=== PATIENT | male | born 1970 | race Caucasian/White ===

== ENCOUNTER 2017-08-23 22:04 | Inpatient (IN) | payer OTHER ==
[~2017-08-23] VITALS: Ht 180.3 cm; Wt 111.6 kg
[~2017-08-23 22:04] MED LIST: CARVEDILOL12.5 MG PO; FLAGYL500 MG PO; HYDROCHLOROTHIA25 M2 PO; LEVOTHYROXINE 0.1 MG PO; LOPRESSOR50 PO; PROTONIX40 M1 PO; TRINATE TABLET1 TAB PO; VITAMIN B-1100 M1 PO
[2017-08-23 22:07] VITALS: BP 101/58
[2017-08-23] MEDS ORDERED: TRAMADOL 50 MG50 MG PO (22:11)
[2017-08-23] MEDS ORDERED: PRINIVIL20 MG PO (22:11)
[2017-08-23 22:29] LABS: ABSOLUTE BASOPHILS 0.2 thou/uL (0.0-0.2); ABSOLUTE EOSINOPHILS 0.3 thou/uL (0.0-0.7); ABSOLUTE LYMPHOCYTES 2.6 thou/uL (0.8-5.3); ABSOLUTE MONOCYTES 1.5 thou/uL (0.0-1.2); ABSOLUTE NEUTROPHILS 6.8 thou/uL (1.6-8.1); BASOPHILS 1.5 %; EOSINOPHILS 2.5 %; HEMATOCRIT 47.4 % (42.0-52.0); HEMOGLOBIN 15.7 gm/dL (14.0-18.0); LYMPHOCYTES 23.2 %; MCH 30.3 pg (26.0-34.0); MCV 91.9 fL (80.0-100.0); MONOCYTES 13.1 %; MPV 8.1 fl. (7.2-11.1); NUCLEATED RBCS 0 /100WBC; PLATELET COUNT* 381 thou/uL (150-400); POLYS 59.7 %; RBC 5.16 mil/uL (4.50-6.00); RDW-CV 14.2 % (10.5-14.5); WBC 11.4 thou/uL (4.0-11.0)
[2017-08-23 22:36] LABS: APTT 23.9 Seconds (25.0-31.3); PROTIME 9.7 Seconds (9.20-11.50)
[2017-08-23 23:34] LABS: CREATININE 3.4 mg/dL (0.6-1.3)
[2017-08-23 23:35] LABS: ALBUMIN 3.4 g/dL (3.4-5.0); CALCIUM 8.8 mg/dL (8.5-10.1); TOTAL PROTEIN 7.2 g/dL (6.4-8.2)
[2017-08-23 23:36] LABS: TROPONIN-I LEVEL 0.17 ng/mL (<0.06)
[2017-08-23 23:51] LABS: URINE BILIRUBIN NEGATIVE (Negative); URINE BLOOD 1+ (Negative); URINE CLARITY CLEAR; URINE COLOR YELLOW; URINE GLUCOSE-RANDOM NEGATIVE (Negative); URINE KETONES TRACE (Negative); URINE LEUKOCYTES-REFLEX TRACE (Negative); URINE NITRITE-REFLEX NEGATIVE (Negative); URINE PROTEIN 1+ (Negative); URINE SPECIFIC GRAVITY 1.015 (1.005-1.030); URINE UROBILINOGEN 0.2 E.U./dl (0.2-1.0)
[2017-08-23 23:54] LABS: TOTAL BILIRUBIN 0.2 mg/dL (<0.1-1.0)
[2017-08-23 23:59] LABS: AMP/METHAMP Negative (Negative); BARBITURATES Negative (Negative); BENZODIAZEPINES Negative (Negative); COCAINE Negative (Negative); METHADONE Negative (Negative); OPIATES Negative (Negative); PCP Negative (Negative); THC Negative (Negative)
[2017-08-24 00:24] LABS: BACTERIA-REFLEX >30 Many /HPF (None Seen); COARSE GRANULAR CASTS 0-3 Few /LPF (None Seen); CRYSTALS None Seen /LPF (None Seen); FINE GRANULAR CASTS 4-10 Moderate /LPF (None Seen); HYALINE CASTS 0-3 Few /LPF (None Seen); MUCUS 4-6 Moderate strn/LPF (None Seen); SQUAMOUS 0-3 Few /LPF (0-3); TRANSITIONAL EPITHEL CELL 0-3 Few /LPF (None Seen); WBC CLUMPS Few (None Seen)
[2017-08-24 00:50] VITALS: BP 133/88
[2017-08-24 01:10] VITALS: BP 133/88
[2017-08-24 04:00] VITALS: BP 127/82
--- NOTE | 2017-08-24 04:24 | NUR ---
ASSUMED CARE OF PT AT 0105 FROM THE ER. PT IS ALERT AND ORIENTED. VSS. PERRLA. NO COMPLAINTS OF PAIN. PT IS NPO FOR CARDIOLOGY. PT IS SLEEPING QUIETLY IN BED. RESPIRATIONS ARE EVEN AND NONLABORED. WILL CONTINUE TO MONITOR PT.
[2017-08-24 08:00] VITALS: BP 152/101
[2017-08-24 08:17] LABS: CALCIUM 9.1 mg/dL (8.5-10.1); CREATININE 2.8 mg/dL (0.6-1.3); MAGNESIUM 2.3 mg/dL (1.8-2.4)
[2017-08-24 08:18] LABS: POTASSIUM 4.2 mmol/L (3.5-5.1)
--- NOTE | 2017-08-24 09:53 | NUR ---
Pt is A&O. Resides at home with and kids. 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 No DME. No hx of HH or SNF. Supportive family. Following for disposition.
--- NOTE | 2017-08-24 10:24 | EKG ---
[place] [address] ELECTROCARDIOGRAM REPORT Name: MONICO CRAMER Room: [address] IN [facility].#: [id number] Admission: 08/23/17 Attend Phys: Contreras Scanlon Discharge: Date of : 70 Report #: [id number] THIS REPORT FOR: //name// [facility] ED Test Date: 2017-08-23 Test Time: 22:10:38 Pat Name: MONICO CRAMER Department: Room: Gender: Ramp Lead: VINAYAK Martinez : 1970 Requested By: Loraine Damon Order Number: [id number] MD: Mart Storm Measurements Intervals [place] Rate: 110 P: 41 VA: 159 QRS: 31 QRSD: 102 T: 18 QT: 329 QTc: 446 Interpretive Statements Sinus tachycardia ST elev, probable normal early repol pattern Compared to ECG 10/08/2016 07:25:45 ST (T wave) deviation now present Myocardial infarct finding no longer present Electronically Signed On 08-24-2017 10:24:24 CDT by Mart Storm [email or web address] <ELECTRONICALLY SIGNED> By: Mart Storm MD, FACC 08/24/17 1024 2210 2210 Mart Storm MD, [facility] /EPI
--- NOTE | 2017-08-24 13:04 | NUR ---
ASSUMED CARE OF PT AT 0730. PT RESTING IN BED. PT A&0X4, DENIES ANY PAIN OR SHORTNESS OF BREATH AT THIS TIME. PT BLOOD PRESSURE ELEVATED AT 152/101- DR YORK AWARE. NO NEW ORDERS RECEIVED AT THIS TIME. PT TRACING SR/ST ON THE PLATER SUPERVISOR. ON RA SAT UPPER 90'S. IVF. PT UP SBA TO BATHROOM. PT NPO AT THIS TIME FOR CARDIOLOGY CONSULT. PT GOAL FOR TODAY IS MONITOR BLOOD PRESSURE CLOSELY, MONITOR CIWA'S AND OBTAIN ORTHOSTATS. AM ASSESSMENT CHARTED. MEDICATIONS PER APR. PT REPOSITIONS SELF. HOURLY ROUNDING OBSERVED. BED IN LOW POSITION. CALL LIGHT WITHIN REACH. WILL CONTINUE PLAN OF CARE.
--- NOTE | 2017-08-24 13:27 | CON ---
[address] [address] CONSULTATION Name: MONICO CRAMER Room: [address] IN M.R.#: [id number] Admission: 08/23/17 Attend Phys: Contreras Scanlon Discharge: Date of : 70 Report #: [id number] THIS REPORT FOR: //name// CC: Guilherme Dong INPATIENT CONSULTATION PRIMARY CARE PROVIDER: Guilherme Cope DO. CHIEF COMPLAINT: Syncope. HISTORY OF PRESENT ILLNESS: The patient is a 47-year-old male with a history of high blood pressure, and cerebrovascular disease, who had an episode of fainting while standing up yesterday. He could tell it was coming on. He somewhat felt nauseous and then he briefly went unconscious. It never occurs while walking. It always occurs from sitting from standing. He has a long-standing history of high blood pressure and difficult to manage blood pressures. He had a recent titration of his lisinopril dose. His blood pressure was running in the 170s-180s systolic range. He denies chest pain or pressure, although in the past, he has had chest pain. He denies fevers, chills or cough. He does drink a pint of liquor, usually whiskey daily. He denies fevers or chills. He has had some diminished p.o. intake as well as he has had some dysphagia apparently only with liquids. He has been receiving IV fluids overnight and currently, he is asymptomatic and is in a sinus rhythm. He denies exertional shortness of breath, syncope or presyncope with activity. PAST MEDICAL HISTORY:He has severe internal carotid vascular disease per prior SD, and apparently was referred to [facility] for evaluation, but didn't seek treatment He has a history of cardiac murmur and aortic sclerosis based on 2017 echocardiogram. He had a negative stress test that year. He has grossly normal LV systolic function. He has hypertension. He has the aforementioned daily ethanol intake. He has high cholesterol. He is not diabetic. He denies kidney failure. He denies any history of arrhythmia or PVD. He denies any history of cardiovascular disease, strokes or TIAs. HOME MEDICATIONS: Lisinopril 40 mg daily [place] [address] CONSULTATION Name: MONICO CRAMER Room: [address]#: [id number] Admission: 08/23/17 Attend Phys: Contreras Scanlon Discharge: Date of : 70 Report #: [id number] PAST SURGICAL HISTORY: No recent surgeries. SOCIAL HISTORY: He, as noted above, drinks a pint of whiskey daily. He is . He does not smoke. REVIEW OF SYSTEMS: CENTRAL NERVOUS SYSTEM: No seizures. Positive weakness. GENERAL: No weight loss or fevers. RESPIRATORY: No cough, sputum production, wheezing or asthma. CARDIOVASCULAR: No palpitations. In the past, he has had chest discomfort. He has mild shortness of breath. He denies orthopnea or PND. ENDOCRINE: He denies diabetes. GASTROINTESTINAL: Positive vomiting. GENITOURINARY: No dysuria or hematuria. HEMATOLOGIC: No anemia or bleeding disorders. ALLERGIES: Positive seasonal allergies. No aspirin or contrast allergies. PSYCHIATRIC: No depression or anxiety. MUSCULOSKELETAL: Positive arthritis. SKIN: No rashes. EYES: He denies glasses. EARS, NOSE, THROAT AND MOUTH: No decreased hearing, bleeding from nose or dentures. PHYSICAL EXAMINATION: VITAL SIGNS: Blood pressure today is 152/101, pulse is 99 and respiratory rate is 18. GENERAL: This is a pleasant middle-aged male who is alert, oriented, no apparent distress. HEENT: There is no evidence of trauma. The patient has no facial asymmetry. NECK: Carotid upstrokes are normal. I cannot hear bruits. CARDIOVASCULAR EXAMINATION: Regular. There is a grade 3/6 systolic murmur. LUNGS: Clear to auscultation. ABDOMEN: Nontender. EXTREMITIES: There is no peripheral edema. SKIN: Warm and dry. DIAGNOSTIC DATA: Telemetry demonstrates a sinus rhythm. ECG demonstrates a sinus tachycardia. Normal ST segments. LABORATORY DATA: Hemoglobin 15.7, white blood cell count 11.4. Sodium is 143, potassium is 4.2, chloride is 107, CO2 is 24, BUN is 42 and creatinine is 2.8. Troponin I is 0.06 x 2 sets. TSH is 2.616. IMPRESSION AND PLAN: 1. Extracellular volume depletion. [place] [address] CONSULTATION Name: MONICO CRAMER Room: [address]#: [id number] Admission: 08/23/17 Attend Phys: Contreras Scanlon Discharge: Date of : 70 Report #: [id number] 2. Syncope. This seems orthostatic, but there is possibly a component of vasovagal syncope and this is not his first episode. He has internal carotid vascular disease and may be having global cerebrovascular ischemia transiently. 3. Hypertension. Given his kidney disease, we will hold his WILL inhibitor. He may benefit from a beta-deedee type drug with less peripheral action.However I would keep his blood pressure mildly elevated due to his cerebrovascular disease. 4. Ethanol intake. This is likely the etiology of his dehydration and possibly his tachycardia as well if he is having some withdrawal. Cessation is recommended. 5. Cerebrovascular disease- neurology is being consulted. <ELECTRONICALLY SIGNED> By: Mart Storm MD, FACC 08/24/17 1327 0932 [id number] Storm MD, FACC /nt
[2017-08-24 16:12] VITALS: BP 172/113
--- NOTE | 2017-08-24 18:42 | NUR ---
NO ACUTE CHANGES THROUGHOUT SHIFT. REFER TO CHARTING. ORTHOSTATS COMPLETED- PT SCREENED NEGATIVE. PT BLOOD PRESSURE CONTINUES TO BE ELEVATED- GOAL IS TO KEEP IT ELEVATED SOME DUE TO CVA HISTORY, LISINOPRIL HELD DUE TO RENAL FUNCTION. PT GIVEN ONE DOSE OF ATIVAN PO WITH RELIEF. CIWA SCORE CHARTED. PT HAD US CAROTIDS AND A RENAL ULTRASOUND TODAY. REFER TO RESULTS. NEURO AND VASCULAR CONSULTED ON PT FOR MOYAMOYA. PT DENIES ANY PAIN OR SHORTNESS OF BREATH THROUGHOUT SHIFT. CONTINUES TO TRACE SR/ST ON THE SENIOR LABORATORY TECHNICIAN. ON RA SAT UPPER 90'S. IVF. PT UP SBA TO BATHROOM. FAMILY AT BEDSIDE THIS AFTERNOON- UPDATED ON CURRENT CARE PLAN. MEDICATIONS PER APR. PT REPOSITIONS SELF. HOURLY ROUNDING OBSERVED. BED IN LOW POSITION. CALL LIGHT WITHIN REACH. WILL CONTINUE PLAN OF CARE.
[2017-08-24 19:35] VITALS: BP 190/116
[2017-08-25] VITALS (7 sets, daily range): BP systolic 150–187; BP diastolic 88–116
--- NOTE | 2017-08-25 00:25 | NUR ---
ASSUMED CARE OF PT AT 1900. PT IS ALERT AND ORIENTED. VSS. PERRLA. CIWA IS 0 AT THIS TIME. STEADY GAIT. PT IS UP WITH 1 ASSIST. PT IS IN SINUS RYTHM ON THE TELEMETRY. PT IS RESTING COMFORTABLY IN BED. RESPIRATIONS ARE EVEN AND NONLABORED. WILL CONTINUE TO MONITOR PT.
[2017-08-25 04:49] LABS: HEMATOCRIT 43.2 % (42.0-52.0); HEMOGLOBIN 14.3 gm/dL (14.0-18.0); MCH 30.4 pg (26.0-34.0); MCHC 33.2 g/dL (28.0-37.0); MCV 91.6 fL (80.0-100.0); MPV 8.2 fl. (7.2-11.1); RBC 4.72 mil/uL (4.50-6.00); RDW-CV 14.3 % (10.5-14.5); WBC 9.3 thou/uL (4.0-11.0)
[2017-08-25 04:58] LABS: CALCIUM 8.3 mg/dL (8.5-10.1); MAGNESIUM 1.5 mg/dL (1.8-2.4); POTASSIUM 3.5 mmol/L (3.5-5.1)
[2017-08-25 05:06] LABS: CREATININE 1.1 mg/dL (0.6-1.3)
--- NOTE | 2017-08-25 17:39 | NUR ---
PATINET RESTING IN BED. UP STANDBY ASSIST IN ROOM. PATINET EXPECTED TO DISCHARGE TOMORROW. FOLLOW UP WITH NEUROLOGY AT [facility]. BIPAP AT . HOURLY ROUNDING COMPETED FOR PATIENT SAFETY AND PATIENT PARTICIPATING IN PLAN OF CARE.
--- NOTE | 2017-08-25 20:05 | CON ---
[facility] [address] [place] [address] CONSULTATION Name: MONICO CRAMER Room: [address] IN M.R.#: [id number] Admission: 08/23/17 Attend Phys: Contreras Scanlon Discharge: Date of : 70 Report #: [id number] THIS REPORT FOR: //name// CC: Guilherme Dong HISTORY OF PRESENT ILLNESS: This is a 47-year-old male patient who was seen by me for a complicated history. This patient is admitted with syncope. The family indicates that his blood pressure goes too low. They checked the blood pressure and sometime the blood pressure is only 70 systolic. On other occasion, his blood pressure goes high. He did have an episode of syncope while standing. The family tells me that the patient was here in September and I saw him at that time and had recommended that he goes to [facility]. According to them, it was in 09/2016. They never went to [facility]. They indicated that [facility] wanted a referral and they called my office and my office sent the referral according to them, but then they called again and [facility] said they never got it and then they did not pursue it any further since that time. I went back and reviewed the records from that time and it looks like this patient was seen here in 09/2016. He did have a CT angiogram done and that does demonstrate pretty significant disease and because of that he was referred to [facility], but he never went there. REVIEW OF SYSTEMS: Indicate that this patient continued to drink heavy amount of alcohol. He drinks about 1 pint a day. We have talked about stopping the alcohol especially because his MRI has already started to show changes, but he never stopped drinking any alcohol. His creatinine has been high here. His BUN was high. He does not smoke. His last LDL was 146. Presently, he is on alcohol withdrawal precaution and he is on Lipitor. It does not look like he has any focal symptoms. He does complain of some numbness in the right hand, but it is tough to tell whether it is a central or peripheral problems. Rest of the 14-point review of system was mostly noncontributory. PAST MEDICAL HISTORY: Positive for heavy alcoholism for a long time, which is continuous. This patient was seen by Dr. Orantes for syncope in 09/2016 and I had followed up this patient after her original consultation and he was supposed to follow up at [facility] according to the family and the , but he never did. He does have a history of radiation for his Hodgkin, but radiation was mostly to the neck. Past medical history is positive for Hodgkin disease. FAMILY HISTORY: Noncontributory. SOCIAL HISTORY: He drinks heavily, but he does not smoke. PHYSICAL EXAMINATION: Indicate he is sleepy, but he wakes up. When he wakes up, he follows simple commands. His speech looks intact. [place] [address] CONSULTATION Name: MONICO CRAMER Room: [address] IN ..#: [id number] Admission: 08/23/17 Attend Phys: Contreras Scanlon Discharge: Date of : 70 Report #: [id number] of knowledge need to be done some other time because I do not believe he is awake enough at the moment. His cranial nerve examination 2-12, the best I can tell is unremarkable. He does appear to have symmetrical strength, sensation and reflexes. There are no meningeal sign. There is no carotid bruit. His exam is suboptimal because he is very sleepy and I am going to try it again. He does not have any respiratory difficulty. There is no rhonchi. His blood pressure is 150/88, respiration is 20, pulse is 92 and temperature is 98.2. IMAGING: I reviewed his prior imaging and it is summarized as above. IMPRESSION: Severe intracranial disease for which he needs follow up at [facility]. He was supposed to go to [facility] in September, but there was some logistic problem, but as I understand from the family, they did not pursue it any further after that. I had a long discussion with them and I told them that they need to go there. I told them that if they have any problem, they should contact me and I will be happy to call them. His symptoms of syncope are unlikely to be related to the intracranial disease. That is because of postural hypertension, but the disease needs to be addressed because it will increase his chances of having a stroke in the ____. I do not think he got any radiation to the brain, so radiation-induced vasculitis will be less likely and I think we need to see if it is intracranial atherosclerotic disease, idiopathic [employer]LEMARK[employer]ING [employer] angiitis, Metcalf disease. Those questions need to be addressed in a tertiary care center. I am going to go ahead and do the MRI and MRA to see if there is any interval change. We cannot do CT angio because he just had a very high creatinine. He needs to go to as soon as possible. We will talk to them and see if they would like to see him as an inpatient or outpatient and I will also try to contact them. this addendum is being added at the time of signing this note. After dictating this note I talked to hospitalist multiple time and talked to the patient and the family again. I called [facility] neurologist and uploaded the images and they reviewed it. They have reviewed his images at my request in September 2016 but he never went for appointment there. They don't think anything urgently should be done. They want to see him in the clinic.I strongly urged him to make an appointment with them and follow-up with them. I will suggest he continue statin and taking one aspirin daily in the meantime. More than 70 minutes of time was spent taking care of this patient today and majority of that time was spent counseling the patient and the family and coordinating his care including talking to multiple health dog day care attendant. <ELECTRONICALLY SIGNED> By: Ulises Hardwick MD 08/25/172004 0728 0849Ulises Hardwick MD /nt
[2017-08-26 00:15] VITALS: BP 148/79
[2017-08-26 04:00] VITALS: BP 173/109
--- NOTE | 2017-08-26 04:59 | NUR ---
ASSUMED PT CARE AT 1930. NUSING ASSESSMENT COMPLETED AT START OF SHIFT. PT TRACING SINUS RHYTHM/SINUS TACHY ON HEART MONITOR. DENIES PAIN THIS SHIFT, CIWA SCORE ZERO THIS SHIFT. PT BP 185/111 AT 1999, DR. YORK NOTIFIED AND NEW ORDER RECEIVED. SEE EMAR FOR DOCUMENTATION. BP RECHECKED AT 2300 AND BP 187/116. DR. YORK NOTIFIED, METOPROLOL IVPUSH ADMINISTERED, SEE EMAR FOR DOCUMENATION. BP RECHECK 148/79. HOURLY ROUNDING COMPLETED, FALL PRECAUTIONS IN PLACE. CALL LIGHT WITHIN REACH.
[2017-08-26 08:05] VITALS: BP 158/100
--- NOTE | 2017-08-26 09:40 | NUR ---
RECEIVED REPORT FROM ANKUR AND ASSUMED CARE OF PT @ 0876.PT IS A/O X4,BP ELEVATED @ 158/100-MEDICATIONS GIVEN.LUNG SOUNDS ARE CLEAR.LAST BM WAS YESTERDAY.IV RIGHT HAND PATENT AND SALINE LOCKED.PT IS CALM AND COOPERATIVE WITH NO C/O PAIN AT TIME OF ASSESSMENT.PT IS UP WITH SBA TO BRP.PT LEFT RESTING IN BED WITH CALL LIGHT AND FALL PRECAUTIONS IN [place]. WILL CONTINUE TO MONITOR.
[2017-08-26] MEDS ORDERED: ASPIR 8181 MG PO (10:56)
[2017-08-26] MEDS ORDERED: ATORVASTATIN CA40 MG PO (10:56)
[2017-08-26 11:14] VITALS: BP 158/100
--- NOTE | 2017-08-26 11:25 | NUR ---
PT OK FOR DISCHARGE.PAPERWORK COMPLETED AND GIVEN TO PT.SCRIPTS GIVEN WITH EDUCATION.ALL PERSONAL BELONGINGS PACKED AND TAKEN WITH PT.IV REMOVED.HEART MONITOR REMOVED AND RETURNED TO NURSING STATION.PT WHEELED DOWN BY NURSING STAFF TO PERSONAL VEHICLE.
== END 2017-08-26 11:50 | disposition home or self-care (01) | DRG 67 ==
LOC: M.ERS 22:04 → M.TBA-ER 23:50 → M.2W 23:50
PROVIDERS: Internal Medicine; Personal Emergency Response Attendant; ADMIT Internal Medicine
DX: I65.23 Occlusion and stenosis of bilateral carotid arteries (principal); N17.0 Acute kidney failure with tubular necrosis; I67.5 Moyamoya disease; K22.10 Ulcer of esophagus without bleeding; I10 Essential (primary) hypertension; I77.6 Arteritis, unspecified; Y90.9 Presence of alcohol in blood, level not specified; R91.1 Solitary pulmonary nodule; E03.9 Hypothyroidism, unspecified; E78.5 Hyperlipidemia, unspecified; I95.9 Hypotension, unspecified; F10.229 Alcohol dependence with intoxication, unspecified; Z85.71 Personal history of Hodgkin lymphoma; Z79.899 Other long term (current) drug therapy; Z90.81 Acquired absence of spleen

== ENCOUNTER 2020-12-14 09:10 | Emergency (ER) | payer MEDICAID ==
[~2020-12-14] VITALS: Ht 180.3 cm; Wt 113.0 kg
[~2020-12-14 09:10] MED LIST changes: +ASPIR 8181 MG PO; +ATORVASTATIN CA40 MG PO; +CARVEDILOL25 MG PO; +PRINIVIL20 MG PO; +TRAMADOL 50 MG50 MG PO
[2020-12-14] MEDS ORDERED: ZOLOFT100 MG PO (09:14)
[2020-12-14] MEDS ORDERED: KEPPRA XR500 MG PO (09:14)
[2020-12-14] MEDS ORDERED: OMEPRAZOLE 20 M20 M1 PO (09:14)
[2020-12-14] MEDS ORDERED: ACAMPROSATE CA333 MG PO (09:14)
[2020-12-14] MEDS ORDERED: LEVO-T50 MCG PO (09:15)
[2020-12-14] MEDS ORDERED: CARVEDILOL12.5 MG PO (09:15)
[2020-12-14] MEDS ORDERED: LISINOPRIL2.5 MG PO (09:15)
[2020-12-14] MEDS ORDERED: TRAZODONE HCL50 MG PO (09:15)
[2020-12-14] MEDS ORDERED: PERCOCET 5-3251 EACH PO (09:16)
[2020-12-14] MEDS ORDERED: ROPINIROLE HCL0.5 MG PO (09:16)
[2020-12-14] MEDS ORDERED: CRUTCHES MISCELL ×2 (11:40)
[2020-12-14 11:45] VITALS: BP 124/68
== END 2020-12-14 11:45 | disposition home or self-care (01) ==
LOC: M.ERS 09:10
DX: M25.461 Effusion, right knee (principal); M25.561 Pain in right knee; M17.11 Unilateral primary osteoarthritis, right knee; I10 Essential (primary) hypertension; E03.9 Hypothyroidism, unspecified; Z79.899 Other long term (current) drug therapy